=== PATIENT | female | born 1935 | race Caucasian/White ===

== ENCOUNTER → 2017-06-29 08:29 | Outpatient (CLI) | payer MEDICARE, OTHER, SELFPAY ==
[2017-06-29 09:19] LABS: AST(SGOT) 20 U/L (15-37); Alanine Aminotransfer ALT/SGPT 19 U/L (13-56); Albumin, Serum 3.6 g/dL (3.2-5.0); Alkaline Phosphatase 62 U/L (45-117); Bilirubin, Direct 0.18 mg/dL (0.00-0.30); Cholesterol 193 mg/dL (200); Globulin 3.9 g/dL (2.2-4.2); High Density Lipoprotein 62 mg/dL; Protein, Total 7.5 g/dL (6.4-8.2); Triglycerides 119 mg/dL; Very Low Density Lipoprotein 24 mg/dL (5-40)
== END ==
PROVIDERS: Family Provider Internal Medicine; PCP Internal Medicine; Visit Provider Internal Medicine Cardiovascular Disease
DX: E78.5 Hyperlipidemia, unspecified (principal); Z79.899 Other long term (current) drug therapy
CPT/HCPCS: 36415; 80061; 80076

== ENCOUNTER → 2017-10-13 12:23 | Outpatient (CLI) | payer MEDICARE, OTHER, SELFPAY | PROVIDERS: Family Provider Internal Medicine; PCP Internal Medicine; Visit Provider Internal Medicine | DX: Z12.31 Encounter for screening mammogram for malignant neoplasm of breast (principal) | CPT/HCPCS: 77063; 77067 ==

== ENCOUNTER 2017-12-27 09:23 | Emergency (ER) | payer MEDICARE, OTHER, SELFPAY ==
[2017-12-27 09:25] VITALS: BP 148/89; PULSE 85; RESP 16; TEMP 36.3; O2SAT 97; BMI 23.6
--- NOTE | 2017-12-27 10:09 | RAD_ITS ---
STUDY: X-RAY CHEST REASON FOR EXAM: Female, 82 years old. Cough TECHNIQUE: PA and lateral views of the chest. COMPARISON: None. FINDINGS: There is hyperinflation of the lungs consistent with chronic obstructive lung disease (COPD). Lungs are clear. There is no demonstrated pleural abnormality. Sternal cerclage wires are present from a prior sternotomy. Heart size is within normal limits. Calcified right hilar granulomas. Normal visualized pulmonary arteries. There is atherosclerotic calcification of the aortic arch with tortuosity. There are diffuse degenerative changes of the visualized thoracic spine. Normal visualized ribs, clavicles, and shoulders. There is no demonstrated abnormality of the visualized soft tissue structures of the upper abdomen. RAD/Chest PA and Lateral IMPRESSION: COPD without acute findings Electronically Signed: Jered Wilson DO at 10:42 EST Tel , Service support ,
--- NOTE | 2017-12-27 10:13 | ED.DCSUM_ITS ---
- ER Visit Summary Date of Service: 12/27/17 Chief Complaint: Cough History of Present Illness: The patient is a [address] Edge. She reports he has a nonproductive cough began approximately 2 weeks ago. She reports that she is having severe coughing spells 3-4 times per day. She denies any fever or chills. No chest pain or shortness of breath. She reports that she does have congestion and mild sinus drainage. Physical Examination: Vitals: Stable. Afebrile. General: Well-nourished and well-developed. Head: Normocephalic atraumatic. Neck: Supple, no lymphadenopathy. No JVD. Nontender. Cardiovascular: Regular rate and rhythm. No murmurs. Respiratory: No respiratory distress. Clear to auscultation bilaterally. Abdominal: Soft, nontender, nondistended, normal bowel sounds. No guarding, rebound, or peritoneal signs. Back: Nontender. Extremities: Nontender, no edema. Skin: Normal color, no rash. Neurologic: Alert and oriented ?3. Cranial nerves II through XII are intact. Normal strength and sensation. Psych: Normal affect. Test Results: Chest x-ray shows no acute disease. She does have chronic changes and calcified right hilar nodes that were present on a CT in 2016. Emergency Department Course and Treatment: Patient is resting comfortably. She reports she had a similar episode last year that resolved after Zithromax. I did discuss the possibility that this is viral in origin. Treatment Plan: Patient will be discharged with Zithromax. Instructed to follow-up with Dr. Edge in 5-7 days if not improving. Return to the emergency department for any worsening symptoms. Disposition: To home in improved and stable condition. Impression: 1. URI. This note was generated with Explorer.io dictation software. It may contain incorrect words, spelling, and punctuation that were not noted in review of the chart prior to signing ED Disposition - Plan for ED Patient: Chief Complaint: Cough Instructions: ED Upper Resp Infec Abx Tx Prescriptions: Azithromycin [Zithromax] 250 mg PO DAILY #4 tablet Referrals: Meera Edge DO [Primary Care Provider] - 5-7 Days
[2017-12-27] MEDS: Azithromycin 250 MG Tablet 500 MG PO (10:23)
== END 2017-12-27 10:45 | disposition home or self-care (01) ==
LOC: ED 10:02
PROVIDERS: Emergency Provider Emergency Medicine; Family Provider Internal Medicine; PCP Internal Medicine
DX: J06.9 Acute upper respiratory infection, unspecified (principal); J98.4 Other disorders of lung; I25.10 Atherosclerotic heart disease of native coronary artery without angina pectoris; I10 Essential (primary) hypertension; Z79.82 Long term (current) use of aspirin; Z79.899 Other long term (current) drug therapy; Z95.1 Presence of aortocoronary bypass graft
CPT/HCPCS: 71046; 99281

== ENCOUNTER → 2018-07-12 09:15 | Outpatient (CLI) | payer MEDICARE, OTHER, SELFPAY ==
[2018-07-12 10:48] LABS: AST(SGOT) 21 U/L (15-37); Alanine Aminotransfer ALT/SGPT 23 U/L (13-56); Albumin, Serum 3.4 g/dL (3.2-5.0); Alkaline Phosphatase 67 U/L (45-117); Bilirubin, Direct 0.14 mg/dL (0.00-0.30); Cholesterol 179 mg/dL (200); Globulin 3.8 g/dL (2.2-4.2); High Density Lipoprotein 65 mg/dL; Protein, Total 7.2 g/dL (6.4-8.2); Triglycerides 99 mg/dL; Very Low Density Lipoprotein 20 mg/dL (5-40)
== END ==
PROVIDERS: Family Provider Internal Medicine; PCP Internal Medicine; Referring Provider Internal Medicine Cardiovascular Disease; Visit Provider Internal Medicine Cardiovascular Disease
DX: E78.5 Hyperlipidemia, unspecified (principal)
CPT/HCPCS: 36415; 80061; 80076

== ENCOUNTER → 2018-07-23 06:33 | Outpatient (CLI) | payer MEDICARE, OTHER, SELFPAY ==
[2018-07-12 13:06] VITALS: BMI 24.9
--- NOTE | 2018-07-23 17:19 | STRESSREP ---
Stress Test Report Date: 07-23-18 Procedure: Exercise tolerance test/imaging study Indications: CAD; CABG Consent: Per the patient Procedure: The patient exercised on a Yoni protocol for 6 minutes and 10 seconds completing Stage II and 10 seconds of Stage III achieving a peak heart rate of 136 bpm (99 % predicted maximal heart rate) with a peak blood pressure 172/84 mmHg and a peak MET capacity of 7 METs. The baseline ECG demonstrated normal sinus rhythm; nonspecific ST/T wave abnormality. The peak exercise ECG demonstrated no obvious ECG changes and the peak recovery ECG demonstrated approximately [address] segment depression in leads II, III, and aVF with subsequent resolution towards baseline in recovery. There were no cardiac dysrhythmias pretest, during exercise, or recovery. The functional capacity was considered good. There was no complaint of chest discomfort during exercise or recovery. The examination was discontinued secondary to hip pain. Impression: 1. Technically adequate (percent predicted maximal heart rate greater than 85%) exercise tolerance test 2. Peak exercise ECG with no obvious ECG changes and the peak recovery ECG demonstrated approximately [address] segment depression in leads II, III, and aVF with subsequent resolution towards baseline in recovery 3. There were no cardiac dysrhythmias pretest, during exercise, or recovery 4. Nuclear images pending Myocardial perfusion imaging study: Technique: The patient was injected with 10.9 mCi of technetium 99m Cardiolite and subsequently rest SPECT Cardiolite nuclear imaging was obtained in the horizontal long, vertical long, and short axis views. The patient exercised on a Yoni protocol for 6 minutes and 10 seconds completing Stage II and 10 seconds of Stage III achieving a peak heart rate of 136 bpm (99 % predicted maximal heart rate) with a peak blood pressure 172/84 mmHg and a peak MET capacity of 7 METs. The patient was injected with 32.1 mCi of technetium 99m Cardiolite and subsequently stress SPECT Cardiolite nuclear imaging was obtained in the horizontal long, vertical long, and short axis views. A gated Cardiolite study at peak stress was obtained. Interpretation: Rest and stress SPECT Cardiolite nuclear imaging status post realignment, normalization, and attenuation correction, demonstrates relative uniform tracer uptake and myocardial perfusion appearing within normal limits. There is end systolic thickening and brightening. The gated Cardiolite study demonstrates myocardial thickening and inward wall motion. The reported LVEF is 80 %. Impression: 1. Rest and stress SPECT Cardiolite nuclear imaging demonstrate relative uniform tracer uptake and myocardial perfusion appearing within normal limits. 2. The gated Cardiolite study reports an LVEF of 80 %. This note was generated with Maraquiaation software. It may contain incorrect words, spelling, and punctuation that were not noted in checking the note before signing.
== END ==
PROVIDERS: Family Provider Internal Medicine; PCP Internal Medicine; Referring Provider Internal Medicine Cardiovascular Disease; Visit Provider Internal Medicine Cardiovascular Disease
DX: I25.10 Atherosclerotic heart disease of native coronary artery without angina pectoris (principal); Z95.1 Presence of aortocoronary bypass graft
CPT/HCPCS: 78452; 93017; A9500; A4216

== ENCOUNTER → 2018-10-20 13:35 | Outpatient (CLI) | payer MEDICARE, OTHER, SELFPAY ==
[2018-07-12 13:06] VITALS: BMI 24.9
--- NOTE | 2018-10-20 13:37 | BI_ITS ---
MAMMOGRAPHY - BILATERAL SCREENING REASON FOR EXAM: Female, 83 years old. Routine annual screening examination. PERTINENT HISTORY: Non-contributory. TECHNIQUE: Digital bilateral breast wagner (3D mammographic acquisition) in the CC and MLO projections. 2-D mediolateral oblique (MLO) and craniocaudad (CC) views of both breasts were obtained. CAD: Full Field Digital Mammography with Computer Added Detection was performed. COMPARISON: Comparison is made with prior study October 13, 2017 and October 08, 2016. FINDINGS: Breast Composition: The breasts are heterogeneously dense, which may obscure small masses. There are no dominant masses or suspicious calcifications. Stable calcified nodule in the deep upper medial aspect of the left breast. This is suggestive of a calcified fibroadenoma. No other significant abnormalities are identified. There has been no significant change since the prior study. BI/SCREEN MAMM (CAD) W/WAGNER BILAT IMPRESSION: Stable bilateral screening mammogram. Yearly follow-up mammogram recommended. (A) ASSESSMENT CATEGORY: BIRADS Category 2: Benign. A letter regarding these results will be sent to the patient by the facility within 30 days. Approximately 10% of breast cancers are not detected by mammography. A normal mammogram should not delay biopsy of a clinically suspicious abnormality. [id number] Electronically Signed: Brian Villarreal, at 14:56 EDT , Service support ,
== END ==
PROVIDERS: Family Provider Internal Medicine; PCP Internal Medicine; Referring Provider Internal Medicine; Visit Provider Internal Medicine
DX: Z12.31 Encounter for screening mammogram for malignant neoplasm of breast (principal)
CPT/HCPCS: 77063; 77067

== ENCOUNTER → 2019-01-11 08:48 | Outpatient (CLI) | payer MEDICARE, OTHER, SELFPAY ==
[2018-07-12 13:06] VITALS: BMI 24.9
[2019-01-11 09:54] LABS: AST(SGOT) 23 U/L (15-37); Alanine Aminotransfer ALT/SGPT 22 U/L (13-56); Albumin, Serum 3.5 g/dL (3.2-5.0); Alkaline Phosphatase 65 U/L (45-117); Bilirubin, Direct 0.18 mg/dL (0.00-0.30); Cholesterol 197 mg/dL (200); Globulin 3.6 g/dL (2.2-4.2); High Density Lipoprotein 58 mg/dL; Protein, Total 7.1 g/dL (6.4-8.2); Triglycerides 130 mg/dL; Very Low Density Lipoprotein 26 mg/dL (5-40)
== END ==
PROVIDERS: Family Provider Internal Medicine; PCP Internal Medicine; Referring Provider Internal Medicine Cardiovascular Disease; Visit Provider Internal Medicine Cardiovascular Disease
DX: E78.00 Pure hypercholesterolemia, unspecified (principal)
CPT/HCPCS: 36415; 80061; 80076

== ENCOUNTER → 2019-04-11 09:30 | Outpatient (CLI) | payer MEDICARE, OTHER, SELFPAY ==
[2019-01-12 13:08] VITALS: BMI 25.0
[2019-04-11 10:47] LABS: AST(SGOT) 29 U/L (15-37); Alanine Aminotransfer ALT/SGPT 32 U/L (13-56); Albumin, Serum 3.7 g/dL (3.2-5.0); Alkaline Phosphatase 67 U/L (45-117); Bilirubin, Direct 0.21 mg/dL (0.00-0.30); Cholesterol 197 mg/dL (200); High Density Lipoprotein 68 mg/dL; Protein, Total 7.7 g/dL (6.4-8.2); Triglycerides 117 mg/dL; Very Low Density Lipoprotein 23 mg/dL (5-40)
== END ==
PROVIDERS: PCP Internal Medicine; Referring Provider Internal Medicine Cardiovascular Disease; Visit Provider Internal Medicine Cardiovascular Disease
DX: E78.00 Pure hypercholesterolemia, unspecified (principal)
CPT/HCPCS: 36415; 80061; 80076

== ENCOUNTER → 2019-04-20 13:01 | Outpatient (CLI) | payer MEDICARE, OTHER, SELFPAY ==
[2019-04-12 13:01] VITALS: BMI 25.2
--- NOTE | 2019-04-20 13:02 | CDU_ITS ---
Reason For Study: Bruit Rt. Velocities/BP Lt. Velocities/BP Prox CCA 63/13.4 cm/sec. Prox CCA 71.1/14.5 cm/sec. Mid CCA 60.4/17.3 cm/sec. Mid CCA 44.7/14.5 cm/sec. Dist CCA 48.6/14.7 cm/sec. Dist CCA 46.6/16.3 cm/sec. Prox ICA 41.9/13.5 cm/sec. Prox ICA 69.2/22 cm/sec. Mid ICA 65.5/23 cm/sec. Mid ICA 86.3/29.6 cm/sec. Dist ICA 82.5/29.6 cm/sec. Dist ICA 76.8/27.7 cm/sec. Rt. ICA/CCA = 1.4. Lt. ICA/CCA = 1.9. Prox ECA 64.3/9.5 cm/sec. Prox ECA 56/6 cm/sec. Rt. Vert. 31.7/9 cm/sec. Lt. Vert. 57.9/18.2 cm/sec. Right Extracranial There is heterogeneous, irregular atherosclerotic plaque noted in the right common carotid artery. There is heterogeneous, smooth atherosclerotic plaque noted in the right internal carotid artery. There is heterogeneous, irregular atherosclerotic plaque noted in the right external carotid artery. Antegrade flow is noted in the right vertebral artery. Left Extracranial There is homogeneous, smooth atherosclerotic plaque noted in the left common carotid artery. There is heterogeneous, irregular atherosclerotic plaque noted in the left internal carotid artery. The atherosclerotic plaque causes acoustic shadowing. There is heterogeneous, smooth atherosclerotic plaque noted in the left external carotid artery. Antegrade flow is noted in the left vertebral artery. Procedure Carotid Duplex [id number]. Exam performed in department. Interpretation Summary Irregular calcific plaque right mid common carotid artery Irregular plaque at the proximal right external carotid artery with a more minimal amount at the proximal right internal carotid artery <50% stenosis right internal carotid <50% stenosis right external carotid Calcific plaque with shadowing distal left common carotid and proximal left internal and external carotid arteries <50% stenosis left internal carotid <50% stenosis left external carotid Patent, antegrade bilateral vertebrals Ordering Physician: Jaleesa Meng Referring Physician: Meera Edge M.D. Performed By: Talia Hong RVT
== END ==
PROVIDERS: PCP Internal Medicine; Referring Provider Physician Assistant Medical; Visit Provider Physician Assistant Medical
DX: R09.89 Other specified symptoms and signs involving the circulatory and respiratory systems (principal); I25.10 Atherosclerotic heart disease of native coronary artery without angina pectoris; I77.9 Disorder of arteries and arterioles, unspecified; I10 Essential (primary) hypertension; E78.00 Pure hypercholesterolemia, unspecified
CPT/HCPCS: 93880

== ENCOUNTER → 2020-07-11 12:49 | Outpatient (CLI) | payer MEDICARE, OTHER, SELFPAY ==
[2020-01-11 15:42] VITALS: BMI 25.4
--- NOTE | 2020-07-11 12:56 | ECHOD_ITS ---
Reason For Study: RBBB Procedure This was a 2D Doppler, Color Flow transthoracic echocardiogram. The exam was of adequate technical quality. Exam performed in department. Left Ventricle Normal LV size. Left ventricular systolic function is normal. The estimated ejection fraction is 65 %. Diastolic function is indeterminate. No regional wall motion abnormalities noted. Right Ventricle Normal RV size. Normal systolic function. Atria Normal left atrium. Normal right atrium. No doppler evidence for ASD. Mitral Valve There is mild mitral annular calcification. Normal mitral valve. Mild (1+) mitral valve insufficiency. Tricuspid Valve Normal tricuspid valve. Moderate (2+) tricuspid valve insufficiency. Right ventricular systolic pressure estimated to be 26 mmHg. Aortic Valve Trisinus/trileaflet aortic valve. Mild diffuse aortic valve thickening. Moderate focal aortic valve calcification. Mild aortic stenosis. Pulmonic Valve The pulmonic valve is not well visualized. Trivial pulmonic valve insufficiency. Great Vessels Mildly dilated aortic root. Pericardium/Pleural No pericardial effusion. MMode/2D Measurements & Calculations LVIDd: 4.4 cm IVSd: 0.70 cm LVOT diam: 1.9 cm LVIDs: 2.9 cm LVPWd: 0.77 cm LVOT area: 2.8 cm2 RVDd: 3.0 cm FS: 34.6 % Ao root diam: 4.1 cm LAV(MOD-bp): 26.4 ml LVAd ap4: 20.0 cm2 LAV(MOD-bp) Indexed: 15.6 ml/m2 LVLd ap4: 6.6 cm LAV(MOD-sp2): 27.3 ml EDV(MOD-sp4): 49.6 ml LAV(MOD-sp4): 25.8 ml EDV(sp4-el): 51.6 ml LVAs ap4: 10.6 cm2 LVLs ap4: 5.3 cm ESV(MOD-sp4): 18.1 ml ESV(sp4-el): 17.9 ml EF(MOD-sp4): 63.4 % EF(sp4-el): 65.2 % LVAd ap2: 14.1 cm2 SV(MOD-sp4): 31.5 ml SV(MOD-sp2): 18.3 ml LVLd ap2: 5.9 cm EDV(MOD-sp2): 27.8 ml EDV(sp2-el): 28.6 ml LVAs ap2: 7.2 cm2 LVLs ap2: 5.1 cm ESV(MOD-sp2): 9.4 ml ESV(sp2-el): 8.7 ml EF(MOD-sp2): 66.0 % SV(sp4-el): 33.6 ml LA dimension(2D): 3.2 cm LA A4 area: 11.4 cm2 RA A4 area: 8.0 cm2 Time Measurements MV dec time: 0.28 sec Doppler Measurements & Calculations MV E max eddie: 67.7 cm/sec Lat Peak E' Eddie: 12.8 cm/sec Med Peak E' Eddie: 3.9 cm/sec MV A max eddie: 88.4 cm/sec E/E' lat: 5.3 E/E' med: 17.2 MV E/A: 0.77 Ao V2 max: 146.0 cm/sec LV V1 max: 87.6 cm/sec PA V2 max: 78.8 cm/sec Ao max P.5 mmHg LV V1 max P.1 mmHg CRISTOBAL(V,D): 1.7 cm2 PI end-d eddie: 95.5 cm/sec TR max eddie: 236.5 cm/sec TR max P.5 mmHg ECHO/Echo Complete Interpretation Summary Left ventricular systolic function is normal. The estimated ejection fraction is 65 %. There is mild mitral annular calcification. Mild (1+) mitral valve insufficiency. Moderate (2+) tricuspid valve insufficiency. Mild aortic stenosis. Trivial pulmonic valve insufficiency. Mildly dilated aortic root. Right ventricular systolic pressure estimated to be 26 mmHg. Diastolic function is indeterminate. Ordering Physician: Meera Edge Referring Physician: Meera Edge Performed By: Shaunajeri TOWNSEND RVT, Carrie and Student
== END ==
PROVIDERS: PCP Internal Medicine; Referring Provider Internal Medicine; Visit Provider Internal Medicine
DX: I45.10 Unspecified right bundle-branch block (principal); R94.31 Abnormal electrocardiogram [ECG] [EKG]
CPT/HCPCS: 93306

== ENCOUNTER 2020-12-24 15:09 | Outpatient (CLI) | payer MEDICARE, OTHER, SELFPAY ==
[2020-12-24 15:35] VITALS: BP 142/75; PULSE 81; RESP 16; TEMP 36.8; O2SAT 99; BMI 24.5
[2020-12-24 16:12] VITALS: BP 138/72; PULSE 70; RESP 16; TEMP 36.7; O2SAT 99
[2020-12-24 16:59] VITALS: BP 131/79; PULSE 81; RESP 16; TEMP 36.8; O2SAT 99
== END 2020-12-24 17:22 | disposition home or self-care (01) ==
LOC: MS3OUT 15:09 → MS3 15:09
PROVIDERS: PCP Internal Medicine; Referring Provider Nurse Practitioner Adult Health; Visit Provider Nurse Practitioner Adult Health
DX: U07.1 COVID-19 (principal)
CPT/HCPCS: J7050; M0245; Q0245

== ENCOUNTER 2021-01-17 17:07 | Emergency (ER) | payer MEDICARE, OTHER, SELFPAY ==
[2021-01-17 17:08] VITALS: BP 204/183; PULSE 94; RESP 16; TEMP 36.6; O2SAT 99; BMI 23.9
--- NOTE | 2021-01-17 17:28 | EKG12_ITS ---
Test Reason : HYPERTENSION Blood Pressure : / mmHG Vent. Rate : 086 BPM Atrial Rate : 086 BPM P-R Int : 172 ms QRS Dur : 094 ms QT Int : 356 ms P-R-T Axes : 081 -29 051 degrees QTc Int : 426 ms Sinus rhythm with Premature atrial complexes Otherwise normal ECG Confirmed by DEO GARCIA, ADA ([id number]), news video editor YASSINE CHIU ([id number]) on 01/18/2021 11:48:22 AM Referred By: MADISYN Confirmed By:ADA DESOUZA MD
--- NOTE | 2021-01-17 17:28 | RAD_ITS ---
STUDY: X-RAY - ACUTE ABDOMINAL SERIES REASON FOR EXAM: Female, 85 years old. abd pain TECHNIQUE: Single view of the chest. Supine, and erect view(s) of the abdomen were obtained. COMPARISON: None. FINDINGS: Chronic fibrotic changes of the lung bases. Granuloma in the right lower lobe. Normal size heart. Sternal wires and mediastinal surgical clips compatible with prior CABG. There are calcified right hilar lymph nodes. Normal visualized pulmonary arteries. There is aneurysmal dilatation of the ascending aorta. There is a non-specific bowel gas pattern. The soft tissue structures of the abdomen and pelvis are unremarkable. There are diffuse degenerative changes of the visualized lumbar spine. Vascular phleboliths of the lower pelvis. Surgical hernia coils project over the right iliac crest. RAD/Acute Abdomen Inc Chest IMPRESSION: 1. Nonobstructive bowel gas pattern. Nonacute Chest xray. Electronically Signed: Pablo Funes MD ([place]) at 18:21 EST , Service support ,
[2021-01-17 17:38] VITALS: BP 148/83; PULSE 84; RESP 18; O2SAT 97
[2021-01-17 17:42] LABS: Absolute Lymphocyte Count 2.84 X10^3/uL (0.83-4.51); Absolute Neutrophil Count 4.1 X10^3/uL (2.0-7.7); Basophil# 0.04 X10^3/uL; Basophil% 0.5 % (0-1); Eosinophil# 0.24 X10^3/uL; Hemoglobin 13.2 g/dL (12.0-15.0); Lymphocyte # 2.84 X10^3/ul (0.83-4.51); Mean Corp Hgb Conc 33.8 g/dL (32-36); Mean Corpuscular Hgb 30.7 pg (27.0-32.0); Mean Corpuscular Volume 90.7 fL (81-99); Mean Platelet Vol. 9.3 fl (6.2-12.0); Monocyte# 0.84 X10^3/uL; Monocyte% 10.3 % (0-10); NRBC Flagged by Analyzer 0 % (0-5); Neutrophil # 4.13 X10^3/uL (2.7-7.7); Neutrophil % 50.8 % (47-70); Platelet Count 320 K/mm3 (150-450); RBC Distribution Width SD 46.2 fl (35.1-43.9); White Blood Count 8.1 K/mm3 (4.4-11.0)
[2021-01-17 18:07] LABS: AST(SGOT) 26 U/L (15-37); Alanine Aminotransfer ALT/SGPT 24 U/L (13-56); Albumin, Serum 3.4 g/dL (3.2-5.0); Alkaline Phosphatase 72 U/L (45-117); Anion Gap 8 (5-15); BUN 26 mg/dL (7-18); BUN/Creat Ratio 26.6 RATIO (10-20); Bilirubin, Direct 0.17 mg/dL (0.00-0.30); Calcium,Total 9.8 mg/dL (8.5-10.1); Chloride 105 mmol/L (98-107); Creatinine, Serum 0.98 mg/dL (0.55-1.02); EST Glomerular Filtration Rate 57 mL/min (>60); Est Glom Filt Rate - Afr Amer 69 mL/min (>60); Estimated Creatinine Clearance 34.09 ml/min; Globulin 4.2 g/dL (2.2-4.2); Glucose 112 mg/dL (74-106); Lipase 399 U/L (73-393); Potassium 3.6 mmol/L (3.5-5.1); Protein, Total 7.6 g/dL (6.4-8.2); Sodium Level 140 mmol/L (136-145); Troponin-I HS 11 pg/mL (3.0-54.0)
--- NOTE | 2021-01-17 19:31 | EX.ED.DYSGE1 ---
HPI History of Present Illness Chief Complaint: General Illness Narrative Narrative: Patient is an 85-year-old female who states that she has been having intermittent bouts of spasm and irritation to her upper abdomen that she feels radiates into her chest. She states the symptoms can come on after eating and will last anywhere from a few minutes to a few hours and then resolve. She states she does have a remote history of heart disease and is concerned this could be cardiac in nature and therefore comes in for evaluation. 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 Bilateral carotid artery disease CAD (coronary artery disease) Carotid artery disease Dyspnea on exertion Essential hypertension GERD (gastroesophageal reflux disease) HTN (hypertension) Hyperlipidemia Other intermodal truck driver (current) drug therapy Palpitations Pericardial effusion Peripheral vascular disease Pure hypercholesterolemia Tachycardia Thoracic aortic aneurysm Home Medications aspirin 325 mg PO DAILY@0800 06/27/13 [History Last Taken 06/28/13] atorvastatin 40 mg PO QHS 06/27/13 [History Last Taken 06/27/13] bumetanide 0.5 mg PO DAILY 06/27/13 [History Last Taken 06/27/13] glucosamine sulf-chondroitinSA 1 ea PO DAILY 06/27/13 [History Last Taken 06/27/13] metoprolol succinate 50 mg PO DAILY 06/27/13 [History Last Taken 06/27/13] multivitamin with folic acid 1 tab PO DAILY 06/27/13 [History Last Taken 06/27/13] cholecalciferol (vitamin D3) 50 mcg (2,000 unit) tablet 2,000 unit PO QDAY 06/23/17 [History Last Taken Unknown] amlodipine 5 mg tablet 5 mg PO DAILY #90 tab 04/27/19 [Rx Last Taken Unknown] ascorbic acid (vitamin C) 500 mg tablet 500 mg PO DAILY@0800 tab 01/11/20 [History Last Taken Unknown] calcium carbonate 600 mg (1,500 mg)-vitamin D3 500 unit capsule 1 cap PO DAILY cap 01/11/20 [History Last Taken Unknown] levothyroxine 25 mcg capsule 50 mcg PO .every other day cap 11/09/20 [History Last Taken Unknown] Allergy/AdvReac Type Severity Reaction Status Date / Time codeine Allergy Unknown Verified 01/17/21 17:23 Family History Father CAD (coronary artery disease) Myocardial infarction Mother CVA (cerebral vascular accident) CHF (congestive heart failure) Brother CAD (coronary artery disease) Hx of CABG Sister No problems noted. Sister Hypertension CAD (coronary artery disease) Surgical History History of hernia repair History of hysterectomy History of repair of rotator cuff Hx of CABG (~11/01/10) Social History (Updated 01/11/20 @ 16:[address] Cheng Sinha MD) Smoking Status: Never smoker alcohol intake: never substance use type: does not use caffeine: Yes Type: tea Number of servings: 1 what type of physical activity do you participate in: none seatbelt use: always do you feel safe at home: Yes ROS ROS ED Constitutional Constitutional ED: Denies chills or fever(s) Eyes Eyes: Denies change in vision ENT ENT ED: Denies sore throat Cardiovascular Cardiovascular: Reports chest pain Respiratory/Chest Respiratory/Chest: Denies cough or dyspnea Gastrointestinal Gastrointestinal: Reports abdominal pain; Denies diarrhea, nausea or vomiting Genitourinary Genitourinary ED: Denies dysuria Musculoskeletal Musculoskeletal: Denies myalgias Integumentary Denies rash Neurologic Neurologic: Denies headache(s) EXAM Physical Exam Const Vital Signs: 01/17/21 17:08 01/17/21 17:22 01/17/21 17:38 Temperature 97.8 F Temperature Source Temporal Pulse Rate 94 84 Respiratory Rate 16 18 Respiratory Effort Normal Respiratory Pattern Normal Blood Pressure 204/183 H 148/83 H Blood Pressure Mean 190 104 Pulse Ox 99 97 Oxygen Delivery Method Room Air Room Air 01/17/21 19:52 Temperature Temperature Source Pulse Rate 70 Respiratory Rate 14 Respiratory Effort Respiratory Pattern Blood Pressure 137/79 H Blood Pressure Mean Pulse Ox 97 Oxygen Delivery Method Positive well nourished and well developed General Appearance ED: well developed HEENT Reports moist mucous membranes Eyes PERRL and EOMs intact bilaterally Neck supple Chest Wall palpation of chest normal Resp normal respiratory effort and clear to auscultation bilaterally Cardio regular rate and regular rhythm Rate: other Other Details: Radial pulses are +2-4 bilaterally they're equal and symmetric GI normal to inspection, nondistended, normoactive bowel sounds, non-tender, non-distended and no masses GI Narrative: No voluntary guarding or rigidity no pulsatile mass Auscultation: normoactive bowel sounds Palpation: soft Extremity normal to inspection Extremity Narrative: No asymmetric edema no pitting edema negative Homans' sign bilaterally Neuro oriented x3 and CN's II-XII intact bilaterally Sensorium / Orientation: alert Motor Exam: strength 5/5 throughout Psych Mood & Affect: anxious Skin no rashes or lesions noted MDM MDM MDM Narrative Medical decision making narrative: Patient presented to the ER hypertensive but otherwise with stable vitals. Her history and physical exam is consistent with a gastritis and esophageal spasm and I feel this is leading to increased anxiety which is then causing her blood pressure to spike. However as she does have a remote history of cardiac disease a basic work-up was obtained. Patient's x-rays revealed no acute findings. EKG is sinus rhythm. Troponin is normal. Her lipase was elevated by only six points which is not clinically significant and she has no derangement to her liver enzymes. Patient was not given any medication and her blood pressure improved and her symptoms resolved. Therefore at this time I do not feel there is need for further work-up and patient can be safely discharged home Lab Data Attestation: I reviewed the patient's lab results. Labs: Laboratory Results - last 24 hr 01/17/21 01/17/21 17:33 17:33 WBC 8.1 RBC 4.30 Hgb 13.2 Hct 39.0 MCV 90.7 MCH 30.7 MCHC 33.8 RDW Std Deviation 46.2 H RDW Coeff of Windy 14.0 Plt Count 320 MPV 9.3 Immature Gran % (Auto) 0.400 Neut % (Auto) 50.8 Lymph % (Auto) 35.0 [place] % (Auto) 10.3 H Eos % (Auto) 3.0 Baso % (Auto) 0.5 Absolute Neuts (auto) 4.1 Absolute Lymphs (auto) 2.84 Nucleated RBC % 0 Sodium 140 Potassium 3.6 Chloride 105 Carbon Dioxide 27.0 Anion Gap 8 BUN 26 H Creatinine 0.98 Estim Creat Clear Calc 34.09 Est GFR (MDRD) Af Amer 69 Est GFR (MDRD) Non-Af 57 L BUN/Creatinine Ratio 26.6 H Glucose 112 H Calcium 9.8 Total Bilirubin 0.60 Direct Bilirubin 0.17 AST 26 ALT 24 Alkaline Phosphatase 72 Troponin I High Sens 11 Total Protein 7.6 Albumin 3.4 Globulin 4.2 Lipase 399 H Radiography Diagnostic Testing: Clinical Impression(s) from Imaging Studies Acute Abdomen Series 01/17/21 17:28 IMPRESSION: 1. Nonobstructive bowel gas pattern. Nonacute Chest xray. Electronically Signed: Pablo Funes MD ([place]) at 18:21 EST , Service support , Discharge Plan Triage Chief Complaint: General Illness ED Provider: Alen Hernandez Dx/Rx/DC Orders Clinical Impression: Gastritis, Esophageal spasm Instructions: ED Esophageal Spasm, ED Gastritis (Adult) Prescriptions: No Action cholecalciferol (vitamin D3) 2,000 unit tablet 2,000 unit tablet 2,000 unit PO QDAY RF: 0 levothyroxine 25 mcg capsule 25 mcg capsule 50 mcg PO .every other day RF: 0 calcium carbonate-vitamin D3 [Calcium 600 with Vitamin D3] 600 mg(1,500mg) -500 unit capsule 1 cap PO DAILY RF: 0 atorvastatin 40 MG tablet 40 mg PO QHS RF: 0 aspirin 325 MG tablet 325 mg PO DAILY@0800 RF: 0 metoprolol succinate 50 MG tablet 50 mg PO DAILY RF: 0 bumetanide 0.5 MG tablet 0.5 mg PO DAILY RF: 0 glucosamine sulf-chondroitinSA 1 EACH capsule 1 ea PO DAILY RF: 0 multivitamin with folic acid 1 TABLET tablet 1 tab PO DAILY RF: 0 ascorbic acid (vitamin C) 500 mg tablet 500 mg PO DAILY@0800 RF: 0 amlodipine 5 mg tablet 5 mg PO DAILY Qty: 90 RF: 3 Primary Care Provider: Meera Edge Referrals: Meera Edge DO [Primary Care Provider] - Activity Restrictions/Additional Instructions: Please also begin taking omeprazole once a day to help with any stomach acid issues as a cause of your symptoms Disposition Disposition: Home, Self Care Discharge Date/Time: 01/17/21 19:52
[2021-01-17 19:52] VITALS: BP 137/79; PULSE 70; RESP 14; O2SAT 97
== END 2021-01-17 19:52 | disposition home or self-care (01) ==
PROVIDERS: Emergency Provider Emergency Medicine; PCP Internal Medicine
DX: K29.70 Gastritis, unspecified, without bleeding (principal); K22.4 Dyskinesia of esophagus; I25.10 Atherosclerotic heart disease of native coronary artery without angina pectoris; I10 Essential (primary) hypertension; K21.9 Gastro-esophageal reflux disease without esophagitis; E78.00 Pure hypercholesterolemia, unspecified; Z95.1 Presence of aortocoronary bypass graft; Z79.82 Long term (current) use of aspirin; Z79.899 Other long term (current) drug therapy
CPT/HCPCS: 74022; 80048; 80076; 83690; 84484; 85025; 93005; 99283; A4216

== ENCOUNTER 2021-07-15 16:20 | Emergency (ER) | payer MEDICARE, OTHER, SELFPAY ==
[2021-07-15 16:21] VITALS: BP 143/102; PULSE 72; RESP 16; TEMP 36.9; O2SAT 100; BMI 23.6
--- NOTE | 2021-07-15 16:38 | EX.ED.UPPERE ---
HPI History of Present Illness Chief Complaint: Upper Extremity Injury Informant: patient Narrative Narrative: Patient presents with left wrist pain after a fall on Thursday. She had been trimming bushes. When she stood up and stepped back she accidentally stepped on part of a tree stump. This caused her to lose her balance fall and catch her self on her left wrist. There is no other pain or injury anywhere besides her left nondominant hand wrist. No deformity. She already has a splint on it that she has been using that does help. There is no numbness tingling or weakness. 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 Bilateral carotid artery disease CAD (coronary artery disease) Carotid artery disease Dyspnea on exertion Essential hypertension GERD (gastroesophageal reflux disease) HTN (hypertension) Hyperlipidemia Other intermediate card tender (current) drug therapy Palpitations Pericardial effusion Peripheral vascular disease Pure hypercholesterolemia Tachycardia Thoracic aortic aneurysm without rupture Home Medications aspirin 325 mg PO DAILY@0800 06/27/13 [History Last Taken 06/28/13] atorvastatin 40 mg PO QHS 06/27/13 [History Last Taken 06/27/13] bumetanide 0.5 mg PO DAILY 06/27/13 [History Last Taken 06/27/13] glucosamine sulf-chondroitinSA 1 ea PO DAILY 06/27/13 [History Last Taken 06/27/13] metoprolol succinate 50 mg PO DAILY 06/27/13 [History Last Taken 06/27/13] multivitamin with folic acid 1 tab PO DAILY 06/27/13 [History Last Taken 06/27/13] cholecalciferol (vitamin D3) 50 mcg (2,000 unit) tablet 2,000 unit PO QDAY 06/23/17 [History Last Taken Unknown] amlodipine 5 mg tablet 5 mg PO DAILY #90 tab 04/27/19 [Rx Last Taken Unknown] ascorbic acid (vitamin C) 500 mg tablet 500 mg PO DAILY@0800 tab 01/11/20 [History Last Taken Unknown] levothyroxine 25 mcg capsule 50 mcg PO .every other day cap 11/09/20 [History Last Taken Unknown] Allergy/AdvReac Type Severity Reaction Status Date / Time codeine Allergy Unknown Verified 07/15/21 16:23 Family History Father CAD (coronary artery disease) Myocardial infarction Mother CVA (cerebral vascular accident) CHF (congestive heart failure) Brother CAD (coronary artery disease) Hx of CABG Sister No problems noted. Sister Hypertension CAD (coronary artery disease) Surgical History History of hernia repair History of hysterectomy History of repair of rotator cuff Hx of CABG (~11/01/10) Social History Smoking Status: Never smoker alcohol intake: never substance use type: does not use caffeine: Yes Type: tea Number of servings: 1 what type of physical activity do you participate in: none seatbelt use: always do you feel safe at home: Yes ROS ROS ED Constitutional Constitutional ED: Denies chills or fever(s) Eyes Eyes: Denies blurry vision Cardiovascular Cardiovascular: Denies chest pain Respiratory/Chest Respiratory/Chest: Denies dyspnea Gastrointestinal Gastrointestinal: Denies nausea or vomiting Musculoskeletal Musculoskeletal: Reports other Details: See history of present illness ; Denies back pain or neck pain Integumentary Denies Abrasions or rash Neurologic Neurologic: Denies paresthesias Hematologic/Lymphatic Hematologic/Lymphatic: Denies easy bleeding or easy bruising EXAM Physical Exam Const Vital Signs: 07/15/21 16:21 Temperature 98.5 F Temperature Source Temporal Pulse Rate 72 Respiratory Rate 16 Blood Pressure 143/102 H Blood Pressure Mean 115 Pulse Ox 100 Oxygen Delivery Method Room Air Positive well nourished and well developed General Appearance ED: well developed and NAD HEENT normocephalic and atraumatic Neck full ROM Resp normal respiratory effort Cardio regular rate GI non-tender Palpation: soft Back/Spine no CVA tenderness Cervical Spine: Negative for cervical spine tenderness Thoracic Spine / Upper Back: Negative for thoracic spinal tenderness Lumbar Spine / Lower Back: Negative for lumbar spinal tenderness Extremity Extremity Narrative: Patient does have some slight swelling diffusely over the distal radius area on the left. No visible deformity. There is a little bit of linear bruising but it seems to be mostly in a skin fold where her wrist splint was. No break in the skin. No distal or proximal swelling. No tenderness in the hand fingers or elbow area. Neuro Sensorium / Orientation: alert Psych mental status grossly normal Skin Skin Narrative: Mild bruising as above. MDM MDM MDM Narrative Medical decision making narrative: X-rays looked at by me and read by radiology shows a small nondisplaced distal radius fracture. Patient already has a good Velcro splint that controls bones on either side of this fracture. I think this should be appropriate. She will be encouraged to follow-up. She will have repeat imaging. She may end up needing casting after a few days as swelling goes down. Discharge Plan Triage Chief Complaint: Upper Extremity Injury ED Provider: Sarmad Espinal Dx/Rx/DC Orders Clinical Impression: Fall from slip, trip, or stumble, Closed fracture of distal end of left radius Instructions: Wrist Fracture Prescriptions: No Action cholecalciferol (vitamin D3) 2,000 unit tablet 2,000 unit tablet 2,000 unit PO QDAY RF: 0 levothyroxine 25 mcg capsule 25 mcg capsule 50 mcg PO .every other day RF: 0 atorvastatin 40 MG tablet 40 mg PO QHS RF: 0 aspirin 325 MG tablet 325 mg PO DAILY@0800 RF: 0 metoprolol succinate 50 MG tablet 50 mg PO DAILY RF: 0 bumetanide 0.5 MG tablet 0.5 mg PO DAILY RF: 0 glucosamine sulf-chondroitinSA 1 EACH capsule 1 ea PO DAILY RF: 0 multivitamin with folic acid 1 TABLET tablet 1 tab PO DAILY RF: 0 ascorbic acid (vitamin C) 500 mg tablet 500 mg PO DAILY@0800 RF: 0 amlodipine 5 mg tablet 5 mg PO DAILY Qty: 90 RF: 3 Primary Care Provider: Meera Edge Referrals: Meera Edge DO [Primary Care Provider] - Arley Dobson MD [STAFF PHYSICIAN] - 3-5 Days Disposition Disposition: Home, Self Care
--- NOTE | 2021-07-15 16:45 | RAD_ITS ---
STUDY: X-RAY - LEFT WRIST REASON FOR EXAM: Female, 85 years old. trauma TECHNIQUE: 3 view(s) of the wrist were obtained. COMPARISON: None. FINDINGS: Acute subtle nondisplaced transverse fracture of the distal metaphysis of the radius without involvement of the radiocarpal joint. Normal radiocarpal articulation. Normal distal radioulnar articulation. Normal carpal bones. There is degenerative arthrosis of the carpal articulations. Normal carpometacarpal articulation of the thumb. Normal second through fifth carpometacarpal articulations. Normal visualized metacarpal bones. The soft tissue structures are unremarkable. RAD/Wrist min 3 Views IMPRESSION: Subtle nondisplaced nondilated transverse fracture of the distal metaphysis of the radius. Electronically Signed: Camacho Bella MD at 17:25 EDT ,
== END 2021-07-15 18:02 | disposition home or self-care (01) ==
PROVIDERS: Emergency Provider Emergency Medicine; PCP Internal Medicine; Visit Provider Emergency Medicine
DX: S52.592A Other fractures of lower end of left radius, initial encounter for closed fracture (principal); W01.0XXA Fall on same level from slipping, tripping and stumbling without subsequent striking against object, initial encounter; Y93.H2 Activity, gardening and landscaping; I25.10 Atherosclerotic heart disease of native coronary artery without angina pectoris; I10 Essential (primary) hypertension; E78.00 Pure hypercholesterolemia, unspecified; Z79.82 Long term (current) use of aspirin; Z79.899 Other long term (current) drug therapy
CPT/HCPCS: 73110; 99282

== ENCOUNTER → 2021-12-26 | Outpatient (CLI) | payer MEDICARE, OTHER, SELFPAY ==
--- NOTE | 2021-12-26 13:49 | ECHOD_ITS ---
Reason For Study: TRICUSPID INSUFFICIENCY Procedure This was a 2D Doppler, Color Flow transthoracic echocardiogram. The exam was of adequate technical quality. Exam performed in department. Left Ventricle Normal LV size. Left ventricular systolic function is normal. The estimated ejection fraction is 65 %. No evidence for diastolic dysfunction. No regional wall motion abnormalities noted. Right Ventricle Normal RV size. Normal systolic function. Atria Normal left atrium. Normal right atrium. No doppler evidence for ASD. Mitral Valve There is mild mitral annular calcification. Extension of the mitral annular calcification onto the base of the posterior mitral valve leaflet. Mild (1+) mitral valve insufficiency. Tricuspid Valve Normal tricuspid valve. Moderate (2+) tricuspid valve insufficiency. Right ventricular systolic pressure estimated to be 32 mmHg. Aortic Valve Trisinus/trileaflet aortic valve. Mild focal aortic valve calcification. Mild aortic stenosis. Pulmonic Valve The pulmonic valve is not well visualized. Great Vessels Mild to moderately dilated aortic root. Pericardium/Pleural 2D echocardiographic images compatible with a small echolucency compatible with a small loculated appearing pericardial effusion with no obvious evidence of cardiac tamponade physiology. MMode/2D Measurements & Calculations LVIDd: 4.5 cm IVSd: 0.83 cm LVOT diam: 2.0 cm LVIDs: 3.2 cm LVPWd: 0.96 cm LVOT area: 3.1 cm2 RVDd: 3.4 cm FS: 28.4 % Ao root diam: 4.4 cm LAV(MOD-bp): 48.2 ml LA A4 area: 14.3 cm2 LAV(MOD-bp) Indexed: 29.1 ml/m2 LAV(MOD-sp2): 46.8 ml LAV(MOD-sp4): 38.4 ml LA dimension(2D): 3.6 cm RA A4 area: 12.7 cm2 Time Measurements MV dec time: 0.22 sec Doppler Measurements & Calculations MV E max eddie: 58.4 cm/sec Lat Peak E' Eddie: 9.4 cm/sec Med Peak E' Eddie: 5.7 cm/sec MV A max eddie: 83.6 cm/sec E/E' lat: 6.2 E/E' med: 10.3 MV E/A: 0.70 MV dec slope: 269.3 cm/sec2 Ao V2 max: 149.2 cm/sec LV V1 max: 87.3 cm/sec Ao max P.9 mmHg LV V1 max P.0 mmHg Ao V2 mean: 100.5 cm/sec LV V1 mean P.6 mmHg Ao mean P.6 mmHg LV V1 mean: 58.7 cm/sec Ao V2 VTI: 31.7 cm LV V1 VTI: 21.0 cm CRISTOBAL(I,D): 2.1 cm2 CRISTOBAL(V,D): 1.8 cm2 SV(LVOT): 65.2 ml PA V2 max: 73.3 cm/sec TR max eddie: 268.4 cm/sec TR max P.8 mmHg ECHO/Echo Complete Interpretation Summary Left ventricular systolic function is normal. The estimated ejection fraction is 65 %. There is mild mitral annular calcification. Extension of the mitral annular calcification onto the base of the posterior mi tral valve leaflet. Mild (1+) mitral valve insufficiency. Moderate (2+) tricuspid valve insufficiency. Mild focal aortic valve calcification. Mild aortic stenosis. Mild to moderately dilated aortic root. 2D echocardiographic images compatible with a small echolucency compatible with a small loculated appearing pericardial effusion with no obvious evidence of cardiac tamponade ph ysiology. Right ventricular systolic pressure estimated to be 32 mmHg. No evidence for diastolic dysfunction. Ordering Physician: Meera Edge Referring Physician: Meera Edge Performed By: Keesha Morgan, RDCS, RVT
== END | disposition home or self-care (01) ==
LOC: CVS 13:48
PROVIDERS: PCP Internal Medicine; Referring Provider Internal Medicine; Visit Provider Internal Medicine
DX: I07.1 Rheumatic tricuspid insufficiency (principal)
CPT/HCPCS: 93306

== ENCOUNTER 2022-02-08 20:56 | Emergency (ER) | payer MEDICARE, OTHER, SELFPAY ==
[2022-02-08 20:58] VITALS: BP 155/95; PULSE 98; RESP 16; TEMP 36.5; O2SAT 98; BMI 23.1
[2022-02-08 21:01] VITALS: BP 155/95; PULSE 98; RESP 16; TEMP 36.5; O2SAT 98
[2022-02-08 22:00] VITALS: BP 138/84; PULSE 73; RESP 17; O2SAT 96
--- NOTE | 2022-02-08 22:20 | EKG12_ITS ---
Test Reason : DYSRHYTHMIA Blood Pressure : / mmHG Vent. Rate : 084 BPM Atrial Rate : 084 BPM P-R Int : 180 ms QRS Dur : 100 ms QT Int : 352 ms P-R-T Axes : 047 -15 047 degrees QTc Int : 415 ms Normal sinus rhythm Normal ECG Confirmed by DEO GARCIA, ADA ([id number]), order editor YASSINE CHIU ([id number]) on 02/10/2022 12:50:36 PM Referred By: MAXIMILIANO Confirmed By:ADA DESOUZA MD
--- NOTE | 2022-02-08 22:30 | RAD_ITS ---
STUDY: X-RAY CHEST REASON FOR EXAM: Female, 86 years old. palpitations TECHNIQUE: Single AP portable view of the chest. COMPARISON: 01/17/2021 FINDINGS: Status post median sternotomy. The lungs are clear and expanded. There is no demonstrated pleural abnormality. Normal size heart. Normal mediastinum and chioma. Normal visualized pulmonary arteries. There is atherosclerotic tortuosity of the aortic arch and descending thoracic aorta. Normal visualized thoracic spine. Normal visualized ribs, clavicles, and shoulders. There is no demonstrated abnormality of the visualized soft tissue structures of the upper abdomen. RAD/Chest 1 View (Portable) IMPRESSION: No active disease. Electronically Signed: Camacho Bella MD at 22:47 EST ,
[2022-02-08 22:41] LABS: Absolute Lymphocyte Count 3.37 X10^3/uL (0.83-4.51); Absolute Neutrophil Count 4.6 X10^3/uL (2.0-7.7); Basophil# 0.05 X10^3/uL; Basophil% 0.5 % (0-1); Eosinophil# 0.25 X10^3/uL; Eosinophils% 2.7 % (0-5); Hematocrit 39.4 % (37-47); Hemoglobin 13.3 g/dL (12.0-15.0); Lymphocyte # 3.37 X10^3/ul (0.83-4.51); Lymphocyte % 36.7 % (19-41); Mean Corp Hgb Conc 33.8 g/dL (32-36); Mean Corpuscular Hgb 30.5 pg (27.0-32.0); Mean Corpuscular Volume 90.4 fL (81-99); Mean Platelet Vol. 9.3 fl (6.2-12.0); Monocyte# 0.94 X10^3/uL; Monocyte% 10.2 % (0-10); NRBC Flagged by Analyzer 0 % (0-5); Neutrophil # 4.55 X10^3/uL (2.7-7.7); Neutrophil % 49.6 % (47-70); Platelet Count 296 K/mm3 (150-450); RBC Distribution Width CV 13.6 % (11.6-14.6); RBC Distribution Width SD 45.4 fl (35.1-43.9); Red Blood Count 4.36 M/mm3 (4.2-5.4); White Blood Count 9.2 K/mm3 (4.4-11.0)
[2022-02-08 23:09] LABS: Anion Gap 8 (5-15); BUN 25 mg/dL (7-18); BUN/Creat Ratio 27.9 RATIO (10-20); Calcium,Total 9.7 mg/dL (8.5-10.1); Chloride 104 mmol/L (98-107); EST Glomerular Filtration Rate 63 mL/min (>60); Est Glom Filt Rate - Afr Amer 76 mL/min (>60); Estimated Creatinine Clearance 38.03 ml/min; Glucose 101 mg/dL (74-106); Magnesium 2.2 mg/dL (1.6-2.6); Potassium 3.3 mmol/L (3.5-5.1); Sodium Level 139 mmol/L (136-145); Thyroid Stim Hormone (TSH) 3.57 uIU/mL (0.358-3.74); Troponin-I HS 8 pg/mL (3.0-54.0)
--- NOTE | 2022-02-08 23:25 | EX.ED.DYSGE1 ---
HPI History of Present Illness Chief Complaint: Palpitations Informant: patient Onset/Context/Timing Onset: Today Timing: Intermittent Current Severity: Gone Maximum Severity: Moderate Narrative Narrative: Patient presents with intermittent episodes of palpitations all day today. She states she first noted around 7 AM. Her heart was fast running in the 140s for about 3 hours. Since then she has had some other shorter intermittent episodes. Daughter came over to check on her and noted that she did not have her metoprolol in her daily medication dispenser. She apparently had emptied 1 bottle and had not opened the new bottle to fill her medication dispenser. Patient is unsure whether she missed any doses of her metoprolol. Patient states she did have A. fib for a brief period after she had heart surgery. 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 Bilateral carotid artery disease CAD (coronary artery disease) Carotid artery disease Closed left arm fracture Dyspnea on exertion Essential hypertension GERD (gastroesophageal reflux disease) HTN (hypertension) Hyperlipidemia Other petroleum terminal plant operator (current) drug therapy Palpitations Pericardial effusion Peripheral vascular disease Pure hypercholesterolemia Tachycardia Thoracic aortic aneurysm without rupture Home Medications aspirin 325 mg tablet 325 mg PO DAILY@0800 06/27/13 [History Last Taken 06/28/13] atorvastatin 40 mg tablet 40 mg PO QHS 06/27/13 [History Last Taken 06/27/13] metoprolol succinate 50 mg tablet,extended release 24 hr 50 mg PO DAILY 06/27/13 [History Last Taken 06/27/13] multivitamin with folic acid 400 mcg tablet 1 tab PO DAILY 06/27/13 [History Last Taken 06/27/13] cholecalciferol (vitamin D3) 50 mcg (2,000 unit) tablet 2,000 unit PO QDAY 06/23/17 [History Last Taken Unknown] amlodipine 5 mg tablet 5 mg PO DAILY #90 tabs 04/27/19 [Rx Last Taken Unknown] ascorbic acid (vitamin C) 500 mg tablet 500 mg PO DAILY@0800 01/11/20 [History Last Taken Unknown] bumetanide 0.5 mg tablet 0.75 mg PO DAILY 12/19/21 [History Last Taken Unknown] lactobacillus combination no.9 4 billion cell capsule (Adult 50 Plus Probiotic) 4,000 mmu cells PO DAILY 12/19/21 [History Last Taken Unknown] levothyroxine 25 mcg capsule 50 mcg PO .COMPLEX 12/19/21 [History Last Taken Unknown] potassium chloride 20 mEq tablet,extended release 20 meq PO BID #6 tabs 02/08/22 [Rx Last Taken Unknown] Allergy/AdvReac Type Severity Reaction Status Date / Time codeine Allergy Unknown Verified 12/19/21 13:25 Family History Father CAD (coronary artery disease) Myocardial infarction Mother CVA (cerebral vascular accident) CHF (congestive heart failure) Brother CAD (coronary artery disease) Hx of CABG Sister No problems noted. Sister Hypertension CAD (coronary artery disease) Surgical History History of hernia repair History of hysterectomy History of repair of rotator cuff Hx of CABG (~11/01/10) Social History Smoking Status: Never smoker alcohol intake: never substance use type: does not use caffeine: Yes Type: tea Number of servings: 1 what type of physical activity do you participate in: none seatbelt use: always do you feel safe at home: Yes ROS ROS ED Constitutional Constitutional ED: Denies chills or fever(s) Eyes Eyes: Denies change in vision or discharge from eye(s) ENT ENT ED: Denies discharge from eye(s), rhinorrhea or sore throat Cardiovascular Cardiovascular: Reports palpitations; Denies chest pain Respiratory/Chest Respiratory/Chest: Denies cough or dyspnea Gastrointestinal Gastrointestinal: Denies abdominal pain, nausea or vomiting Genitourinary Genitourinary ED: Denies dysuria Musculoskeletal Musculoskeletal: Denies back pain or extremity pain Integumentary Denies Abrasions or rash Neurologic Neurologic: Denies headache(s) or weakness Psychiatric Psychiatric: Denies anxiety or depression Allergic/Immunologic Allergic/Immunologic ED: Denies lip swelling or urticaria EXAM Physical Exam Const Vital Signs: 02/08/22 20:58 02/08/22 21:01 02/08/22 21:16 Temperature 97.7 F L 97.7 F L Temperature Source Temporal Temporal Pulse Rate 98 98 Respiratory Rate 16 16 Respiratory Effort Normal Blood Pressure 155/95 H 155/95 H Blood Pressure Mean 115 115 Pulse Ox 98 98 Oxygen Delivery Method Room Air Room Air 02/08/22 22:00 02/08/22 23:27 Temperature Temperature Source Pulse Rate 73 Respiratory Rate 17 Respiratory Effort Blood Pressure 138/84 H 135/87 H Blood Pressure Mean 102 Pulse Ox 96 Oxygen Delivery Method Room Air Positive well nourished and well developed General Appearance ED: well developed HEENT Reports normocephalic and head/scalp atraumatic Eyes PERRL and EOMs intact bilaterally Neck supple Chest Wall inspection of chest normal and palpation of chest normal Resp normal respiratory effort and clear to auscultation bilaterally Cardio regular rate and regular rhythm GI normal to inspection, nondistended, normoactive bowel sounds Palpation: soft Extremity normal to inspection Neuro oriented x3 and no sensory deficits noted Sensorium / Orientation: alert Motor Exam: strength 5/5 throughout Psych mental status grossly normal Skin no rashes or lesions noted MDM MDM MDM Narrative Medical decision making narrative: Patient is placed on corrugated box machine operator. Lab work obtained along with EKG and chest x-ray. Lab Data Attestation: I reviewed the patient's lab results. Labs: Laboratory Results - last 24 hr 02/08/22 02/08/22 21:33 21:33 WBC 9.2 RBC 4.36 Hgb 13.3 Hct 39.4 MCV 90.4 MCH 30.5 MCHC 33.8 RDW Std Deviation 45.4 H RDW Coeff of [place]y 13.6 Plt Count 296 MPV 9.3 Immature Gran % (Auto) 0.300 Neut % (Auto) 49.6 Lymph % (Auto) 36.7 [place] % (Auto) 10.2 H Eos % (Auto) 2.7 Baso % (Auto) 0.5 Absolute Neuts (auto) 4.6 Absolute Lymphs (auto) 3.37 Nucleated RBC % 0 Sodium 139 Potassium 3.3 L Chloride 104 Carbon Dioxide 27.0 Anion Gap 8 BUN 25 H Creatinine 0.90 Estim Creat Clear Calc 38.03 Est GFR (MDRD) Af Amer 76 Est GFR (MDRD) Non-Af 63 BUN/Creatinine Ratio 27.9 H Glucose 101 Calcium 9.7 Magnesium 2.2 Troponin I High Sens 8 TSH 3.57 Radiography Chest X-Ray - ED: 1 View, Read by ED Physician and Chronic Changes Diagnostic Testing: Clinical Impression(s) from Imaging Studies Chest X-Ray 02/08/22 22:30 IMPRESSION: No active disease. Electronically Signed: Camacho Bella MD at 22:47 EST , EKG Initial EKG: Attestation: I personally reviewed and interpreted this EKG as follows: Interpretation: Sinus Rhythm (Sinus at 84 with no acute ischemia.) Treatment and Re-Evaluation Narrative: During patient's observation on corrugated box machine operator, no arrhythmias are appreciated. She is remained in sinus rhythm. CBC and chemistry studies significant for slightly low potassium at 3.3. Magnesium is normal at 2.2. TSH is normal and troponin is normal. Patient is given p.o. potassium replacement here and written for 3 additional days at home. She was advised that if she continues to have episodes of palpitations she would need to see either her primary care physician or her water use inspector about getting a Holter monitor placed. Patient denies having any lightheadedness, dizziness, near syncope with these episodes. Return instructions are given and questions were answered. Discharge Plan Triage Chief Complaint: Palpitations ED Provider: Karley Reyna Dx/Rx/DC Orders Clinical Impression: Palpitations, Hypokalemia Instructions: ED Hypokalemia, ED Palpitations Prescriptions: New potassium chloride 20 mEq tablet extended release 20 meq PO BID Qty: 6 0RF No Action cholecalciferol (vitamin D3) 2,000 unit tablet 2,000 unit tablet 2,000 unit PO QDAY levothyroxine 25 mcg capsule 25 mcg capsule 50 mcg PO .COMPLEX Rx Instructions: 50 mcg orally alternates 25mcg and 50mcg every other day; Adult 50 Plus Probiotic 4 billion cell capsule 4,000 mmu cells PO DAILY Rx Instructions: administer with a meal atorvastatin 40 MG tablet 40 mg PO QHS aspirin 325 MG tablet 325 mg PO DAILY@0800 metoprolol succinate 50 MG tablet 50 mg PO DAILY multivitamin with folic acid 1 TABLET tablet 1 tab PO DAILY ascorbic acid (vitamin C) 500 mg tablet 500 mg PO DAILY@0800 bumetanide 0.5 mg tablet 0.75 mg PO DAILY amlodipine 5 mg tablet 5 mg PO DAILY Qty: 90 3RF Primary Care Provider: Meera Edge Referrals: Meera Edge DO [Primary Care Provider] - Cheng Sinha MD [Med Staff - Active Staff] - 10-14 Days if not better Disposition Disposition: Home, Self Care Discharge Date/Time: 02/08/22 23:41
[2022-02-08 23:27] VITALS: BP 135/87
[2022-02-08] MEDS: Potassium Chloride Oral Tablet 20 MEQ 40 MEQ PO (23:34)
== END 2022-02-08 23:41 | disposition home or self-care (01) ==
PROVIDERS: Emergency Provider Emergency Medicine; PCP Internal Medicine; Visit Provider Emergency Medicine
DX: E87.6 Hypokalemia (principal); R00.2 Palpitations; E78.5 Hyperlipidemia, unspecified; I25.10 Atherosclerotic heart disease of native coronary artery without angina pectoris; I10 Essential (primary) hypertension
CPT/HCPCS: 71045; 80048; 83735; 84443; 84484; 85025; 93005; 99284; A4216

== ENCOUNTER 2022-04-28 21:28 | Emergency (ER) | payer MEDICARE, OTHER, SELFPAY ==
[2022-04-28 21:30] VITALS: BP 153/90; PULSE 103; RESP 18; TEMP 35.9; O2SAT 98; BMI 24.3
--- NOTE | 2022-04-28 22:01 | EKG12_ITS ---
Test Reason : CP Blood Pressure : / mmHG Vent. Rate : 092 BPM Atrial Rate : 092 BPM P-R Int : 176 ms QRS Dur : 096 ms QT Int : 392 ms P-R-T Axes : 075 -26 062 degrees QTc Int : 484 ms Normal sinus rhythm Septal infarct , age undetermined Abnormal ECG Confirmed by TONNY GARCIA, MADINA ([id number]), editor news YASSINE CHIU ([id number]) on 04/30/2022 10:12:06 AM Referred By: MANOJ Confirmed By:MADINA LANCASTER MD
--- NOTE | 2022-04-28 22:03 | ED.VIS.CHEST ---
HPI History of Present Illness Chief Complaint: Chest Pain Detail of Chief Complaint: Tachycardia Informant: patient Onset/Context/Timing Onset: Today Narrative Narrative: Patient presents secondary to tachycardia and chest pressure all day today. She states her heart rate has been running in the 90s all day and she usually runs in the 60s. She has a heavy sensation in her chest. She does not feel short of breath. She does note that she is been under increased stress recently as her has been in the hospital. She has been taking all of her medications on a regular schedule. 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 Bilateral carotid artery disease CAD (coronary artery disease) Carotid artery disease Closed left arm fracture Dyspnea on exertion Essential hypertension GERD (gastroesophageal reflux disease) HTN (hypertension) Hyperlipidemia Other terminal gauger (current) drug therapy Palpitations Pericardial effusion Peripheral vascular disease Pure hypercholesterolemia Tachycardia Thoracic aortic aneurysm without rupture Home Medications aspirin 325 mg tablet 325 mg PO DAILY@0800 06/27/13 [History Last Taken 06/28/13] atorvastatin 40 mg tablet 40 mg PO QHS 06/27/13 [History Last Taken 06/27/13] metoprolol succinate 50 mg tablet,extended release 24 hr 50 mg PO DAILY 06/27/13 [History Last Taken 06/27/13] multivitamin with folic acid 400 mcg tablet 1 tab PO DAILY 06/27/13 [History Last Taken 06/27/13] cholecalciferol (vitamin D3) 50 mcg (2,000 unit) tablet 2,000 unit PO QDAY 06/23/17 [History Last Taken Unknown] amlodipine 5 mg tablet 5 mg PO DAILY #90 tabs 04/27/19 [Rx Last Taken Unknown] ascorbic acid (vitamin C) 500 mg tablet 500 mg PO DAILY@0800 01/11/20 [History Last Taken Unknown] bumetanide 0.5 mg tablet 0.75 mg PO DAILY 12/19/21 [History Last Taken Unknown] lactobacillus combination no.9 4 billion cell capsule (Adult 50 Plus Probiotic) 4,000 mmu cells PO DAILY 12/19/21 [History Last Taken Unknown] levothyroxine 25 mcg capsule 50 mcg PO .COMPLEX 12/19/21 [History Last Taken Unknown] magnesium 1 tab PO DAILY 04/28/22 [History Last Taken Unknown] potassium chloride 20 mEq tablet,extended release 20 meq PO DAILY 04/28/22 [History Last Taken Unknown] zinc 1 tab PO DAILY 04/28/22 [History Last Taken Unknown] Allergy/AdvReac Type Severity Reaction Status Date / Time codeine Allergy Unknown Verified 12/19/21 13:25 Family History Father CAD (coronary artery disease) Myocardial infarction Mother CVA (cerebral vascular accident) CHF (congestive heart failure) Brother CAD (coronary artery disease) Hx of CABG Sister No problems noted. Sister Hypertension CAD (coronary artery disease) Surgical History History of hernia repair History of hysterectomy History of repair of rotator cuff Hx of CABG (~11/01/10) Social History Smoking Status: Never smoker alcohol intake: never substance use type: does not use caffeine: Yes Type: tea Number of servings: 1 what type of physical activity do you participate in: none seatbelt use: always do you feel safe at home: Yes ROS ROS ED Constitutional Constitutional ED: Denies chills or fever(s) Eyes Eyes: Denies change in vision or discharge from eye(s) ENT ENT ED: Denies discharge from eye(s), rhinorrhea or sore throat Cardiovascular Cardiovascular: Reports chest pain and racing heartbeat; Denies palpitations Respiratory/Chest Respiratory/Chest: Denies cough or dyspnea Gastrointestinal Gastrointestinal: Denies abdominal pain, diarrhea, nausea or vomiting Genitourinary Genitourinary ED: Denies dysuria Musculoskeletal Musculoskeletal: Denies back pain or extremity pain Integumentary Denies Abrasions or rash Neurologic Neurologic: Denies headache(s) or weakness Psychiatric Psychiatric: Denies anxiety or depression Allergic/Immunologic Allergic/Immunologic ED: Denies lip swelling or urticaria EXAM Physical Exam Const Vital Signs: 04/28/22 21:30 04/28/22 22:05 04/28/22 23:14 Temperature 96.7 F L Temperature Source Temporal Pulse Rate 103 H 74 Respiratory Rate 18 18 Respiratory Effort Normal Non-Labored Blood Pressure 153/90 H 106/93 H Blood Pressure Mean 111 97 Pulse Ox 98 96 Oxygen Delivery Method Room Air Room Air Positive well nourished and well developed General Appearance ED: well developed HEENT Reports normocephalic and head/scalp atraumatic Eyes PERRL and EOMs intact bilaterally Neck supple Chest Wall inspection of chest normal and palpation of chest normal Resp normal respiratory effort and clear to auscultation bilaterally Cardio regular rate and regular rhythm GI non-tender Palpation: soft Extremity normal to inspection Neuro oriented x3 and no sensory deficits noted Sensorium / Orientation: alert Motor Exam: strength 5/5 throughout Psych mental status grossly normal Skin no rashes or lesions noted Heart Score History: Slightly/Non-Suspicious ECG: Normal Age: >/= 65 years Risk Factors: >/= 3 Risk Factors or History of CAD Troponin: </= Normal Limit Score: 4 MDM MDM MDM Narrative Medical decision making narrative: Patient placed on laboratory monitor. Aspirin provided. EKG obtained to evaluate for cardiac arrhythmia/ischemia. Chest x-ray obtained to evaluate cardiac silhouette and any lung pathology. Laboratory evaluation undertaken to evaluate for leukocytosis, anemia, electrolyte derangement. Troponin obtained to evaluate for cardiac ischemia. TSH obtained given the patient's fast with a normal heart rate and history of hypothyroidism. Lab Data Attestation: I reviewed the patient's lab results. Labs: Laboratory Results - last 24 hr 04/28/22 04/28/22 22:10 22:10 WBC 8.3 RBC 4.18 L Hgb 12.7 Hct 38.8 MCV 92.8 MCH 30.4 MCHC 32.7 RDW Std Deviation 48.2 H RDW Coeff of Windy 14.2 Plt Count 269 MPV 9.1 Immature Gran % (Auto) 0.200 Neut % (Auto) 47.1 Lymph % (Auto) 37.1 [place] % (Auto) 12.0 H Eos % (Auto) 3.0 Baso % (Auto) 0.6 Absolute Neuts (auto) 3.9 Absolute Lymphs (auto) 3.08 Nucleated RBC % 0 Sodium 140 Potassium 3.4 L Chloride 105 Carbon Dioxide 28.0 Anion Gap 7 BUN 30 H Creatinine 1.00 Estim Creat Clear Calc 34.23 Est GFR (MDRD) Af Amer 67 Est GFR (MDRD) Non-Af 56 L BUN/Creatinine Ratio 30.0 H Glucose 112 H Calcium 9.6 Troponin I High Sens 12 TSH 3.60 Radiography Chest X-Ray - ED: 1 View, Read by ED Physician, Normal, Heart, Lungs and Mediastinum Diagnostic Testing: Clinical Impression(s) from Imaging Studies Chest X-Ray 04/28/22 22:20 IMPRESSION: No acute radiographic abnormalities. 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 Heart rate is in the low 70s. Reveals normal white count and hemoglobin. Chemistry studies significant only for slightly low potassium at 3.4. BUN is 30 with a creatinine of 1.0. Troponin is normal at 12. TSH is 3.6. Patient was given oral potassium replacement here. She is reassured with a negative work-up at this time and will follow with her primary care physician. Return instructions also provided. Patient and granddaughter at bedside are comfortable with the plan. Discharge Plan Triage Chief Complaint: Chest Pain ED Provider: Karley Reyna Dx/Rx/DC Orders Clinical Impression: Chest pain Instructions: ED Chest Pain, Noncardiac Prescriptions: No Action cholecalciferol (vitamin D3) 2,000 unit tablet 2,000 unit tablet 2,000 unit PO QDAY levothyroxine 25 mcg capsule 25 mcg capsule 50 mcg PO .COMPLEX Rx Instructions: 50 mcg orally alternates 25mcg and 50mcg every other day; Adult 50 Plus Probiotic 4 billion cell capsule 4,000 mmu cells PO DAILY Rx Instructions: administer with a meal atorvastatin 40 MG tablet 40 mg PO QHS aspirin 325 MG tablet 325 mg PO DAILY@0800 metoprolol succinate 50 MG tablet 50 mg PO DAILY multivitamin with folic acid 1 TABLET tablet 1 tab PO DAILY ascorbic acid (vitamin C) 500 mg tablet 500 mg PO DAILY@0800 bumetanide 0.5 mg tablet 0.75 mg PO DAILY potassium chloride 20 mEq tablet extended release 20 meq PO DAILY zinc Tablet,Chewable 1 tab PO DAILY magnesium Tablet 1 tab PO DAILY amlodipine 5 mg tablet 5 mg PO DAILY Qty: 90 3RF Primary Care Provider: Meera Edge Referrals: Meera Edge DO [Primary Care Provider] - 3-5 Days if not improving Disposition Disposition: Home, Self Care
[2022-04-28] MEDS: Aspirin 81 MG TAB.CHEW 324 MG PO (22:13)
[2022-04-28 22:17] LABS: Absolute Lymphocyte Count 3.08 X10^3/uL (0.83-4.51); Absolute Neutrophil Count 3.9 X10^3/uL (2.0-7.7); Basophil# 0.05 X10^3/uL; Basophil% 0.6 % (0-1); Eosinophil# 0.25 X10^3/uL; Hematocrit 38.8 % (37-47); Hemoglobin 12.7 g/dL (12.0-15.0); Lymphocyte # 3.08 X10^3/ul (0.83-4.51); Lymphocyte % 37.1 % (19-41); Mean Corp Hgb Conc 32.7 g/dL (32-36); Mean Corpuscular Hgb 30.4 pg (27.0-32.0); Mean Corpuscular Volume 92.8 fL (81-99); Mean Platelet Vol. 9.1 fl (6.2-12.0); NRBC Flagged by Analyzer 0 % (0-5); Neutrophil % 47.1 % (47-70); Platelet Count 269 K/mm3 (150-450); RBC Distribution Width CV 14.2 % (11.6-14.6); RBC Distribution Width SD 48.2 fl (35.1-43.9); Red Blood Count 4.18 M/mm3 (4.2-5.4); White Blood Count 8.3 K/mm3 (4.4-11.0)
--- NOTE | 2022-04-28 22:20 | RAD_ITS ---
INDICATION: chest pain EXAMINATION/TECHNIQUE: X-RAY - XR Chest 1 View COMPARISON: 02/08/2022. FINDINGS: Scattered calcified granulomas. The lungs are otherwise clear. Sternal cerclage wires and vascular clips are present from a prior sternotomy and coronary artery bypass graft procedure (CABG). The heart is not enlarged. Tortuous and calcified thoracic aorta. No pleural effusion or pneumothorax. Degenerative changes of the thoracic spine. RAD/Chest 1 View (Portable) IMPRESSION: No acute radiographic abnormalities. Electronically Signed: Ron Castillo MD at 23:13 EST ,
[2022-04-28 22:41] LABS: Anion Gap 7 (5-15); BUN 30 mg/dL (7-18); Calcium,Total 9.6 mg/dL (8.5-10.1); Chloride 105 mmol/L (98-107); EST Glomerular Filtration Rate 56 mL/min (>60); Est Glom Filt Rate - Afr Amer 67 mL/min (>60); Estimated Creatinine Clearance 34.23 ml/min; Glucose 112 mg/dL (74-106); Potassium 3.4 mmol/L (3.5-5.1); Sodium Level 140 mmol/L (136-145); Troponin-I HS (w/2H Reflex) 12 pg/mL (3.0-54.0)
[2022-04-28 23:14] VITALS: BP 106/93; PULSE 74; RESP 18; O2SAT 96
[2022-04-28] MEDS: Potassium Chloride Oral Tablet 20 MEQ 40 MEQ PO (23:38)
--- NOTE | 2022-04-28 23:49 | ED.RN ---
pt and granddaughter very appreciative of care.
[2022-04-29 00:14] LABS: Reflex Troponin-HS? (from REC) Y
== END 2022-04-28 23:49 | disposition home or self-care (01) ==
PROVIDERS: Emergency Provider Emergency Medicine; PCP Internal Medicine; Visit Provider Emergency Medicine
DX: R07.9 Chest pain, unspecified (principal); E78.00 Pure hypercholesterolemia, unspecified; I25.10 Atherosclerotic heart disease of native coronary artery without angina pectoris; Z95.1 Presence of aortocoronary bypass graft; Z79.82 Long term (current) use of aspirin; Z79.899 Other long term (current) drug therapy
CPT/HCPCS: 71045; 80048; 84443; 84484; 85025; 93005; 99285; A4216

== ENCOUNTER → 2022-12-16 | Outpatient (CLI) | payer MEDICARE, OTHER, SELFPAY ==
--- NOTE | 2022-12-16 07:31 | ECHOD_ITS ---
Reason For Study: CHEST PRESSURE, CAD Procedure This was a 2D Doppler, Color Flow transthoracic echocardiogram. Exam performed in department. Left Ventricle Normal size and thickness. The left ventricular ejection fraction is 60 %. Normal diastology for age. Right Ventricle Normal right ventricle. Atria The left atrium is mildly enlarged. Normal right atrium. Mitral Valve Mild (1+) mitral valve insufficiency. Tricuspid Valve Moderately severe (3+) tricuspid valve insufficiency. Right ventricular systolic pressure estimated to be 41 mmHg. Aortic Valve Aortic sclerosis, no stenosis. Mild (1+) aortic valve insufficiency. Pulmonic Valve The pulmonic valve is not well visualized. Great Vessels Mildly dilated aortic root. Pericardium/Pleural Trivial pericardial effusion. MMode/2D Measurements & Calculations LVIDd: 3.9 cm IVSd: 0.82 cm LVOT diam: 2.0 cm LVIDs: 2.7 cm LVPWd: 0.76 cm LVOT area: 3.1 cm2 RVDd: 2.9 cm FS: 31.1 % Ao root diam: 4.2 cm LAV(MOD-bp): 35.3 ml LVAd ap4: 21.7 cm2 LAV(MOD-bp) Indexed: 21.1 ml/m2 LVLd ap4: 6.6 cm LAV(MOD-sp2): 34.9 ml EDV(MOD-sp4): 59.9 ml LAV(MOD-sp4): 30.4 ml EDV(sp4-el): 60.0 ml LVAs ap4: 11.5 cm2 LVLs ap4: 5.5 cm ESV(MOD-sp4): 21.4 ml ESV(sp4-el): 20.6 ml EF(MOD-sp4): 64.2 % EF(sp4-el): 65.7 % LVAd ap2: 18.7 cm2 SV(MOD-sp4): 38.5 ml SV(MOD-sp2): 30.6 ml LVLd ap2: 6.5 cm EDV(MOD-sp2): 46.0 ml EDV(sp2-el): 45.8 ml LVAs ap2: 9.7 cm2 LVLs ap2: 5.4 cm ESV(MOD-sp2): 15.4 ml ESV(sp2-el): 14.9 ml EF(MOD-sp2): 66.6 % SV(sp4-el): 39.4 ml LA dimension(2D): 3.0 cm LA A4 area: 11.7 cm2 RA A4 area: 5.5 cm2 TAPSE: 1.7 cm Time Measurements MV dec time: 0.21 sec Doppler Measurements & Calculations MV E max eddie: 84.9 cm/sec Lat Peak E' Eddie: 11.8 cm/sec Med Peak E' Eddie: 5.7 cm/sec MV A max eddie: 83.8 cm/sec E/E' lat: 7.2 E/E' med: 14.9 MV E/A: 1.0 Ao V2 max: 146.4 cm/sec AI max eddie: 356.9 cm/sec MV dec slope: 413.9 cm/sec2 Ao max P.6 mmHg AI max P.0 mmHg Ao V2 mean: 98.4 cm/sec Ao mean P.5 mmHg AI dec slope: 181.4 cm/sec2 Ao V2 VTI: 36.4 cm AI P1/2t: 576.4 msec AV (velocity ratio): 0.57 CRISTOBAL(I,D): 1.8 cm2 CRISTOBAL(V,D): 1.8 cm2 LV V1 max: 84.7 cm/sec MR max eddie: 436.7 cm/sec SV(LVOT): 64.6 ml LV V1 max P.9 mmHg MR max P.3 mmHg LV V1 mean P.4 mmHg LV V1 mean: 53.8 cm/sec LV V1 VTI: 20.6 cm PA V2 max: 71.6 cm/sec TR max eddie: 277.7 cm/sec PA V2 mean: 47.2 cm/sec TR max P.9 mmHg ECHO/Echo Complete Interpretation Summary The left ventricular ejection fraction is 60 %. The left atrium is mildly enlarged. Mild (1+) mitral valve insufficiency. Moderately severe (3+) tricuspid valve insufficiency. Right ventricular systolic pressure estimated to be 41 mmHg. Aortic sclerosis, no stenosis. Mild (1+) aortic valve insufficiency. Mildly dilated aortic root. Incidental finding of relatively coarse architecture of the liver with cysts no maria eugenia. Consider ultrasound of the liver for further evaluation. Ordering Physician: Meera Edge Referring Physician: Meera Edge Performed By: Keesha Morgan, RDROBERTO, RVT
--- NOTE | 2022-12-16 11:59 | STRESSREP ---
Stress Test Report Date: 12/16/2022 Procedure: Exercise tolerance test/imaging study Indications: Chest pain Consent: Per the patient Procedure: The patient exercised on a Yoni protocol for 4 minutes and 30 seconds achieving a peak heart rate of 121 bpm (91% predicted maximal heart rate) with a peak blood pressure 152/84 mmHg and a peak MET capacity of 7.0 METs. The baseline ECG demonstrated sinus rhythm with nonspecific ST changes. The peak exercise ECG demonstrated nondiagnostic ST changes secondary to baseline abnormality. There were no cardiac dysrhythmias pretest, during exercise, or recovery. The functional capacity was considered average for age. There was no complaint of chest discomfort during exercise or recovery. The examination was discontinued secondary to target heart rate being achieved. The patient was injected with 11.2 mCi of technetium 99m Cardiolite and subsequently rest SPECT Cardiolite nuclear imaging was obtained in the horizontal long, vertical long, and short axis views. Post-exercise, the patient was injected with 34.8 mCi of technetium 99m Cardiolite and subsequently stress SPECT Cardiolite nuclear imaging was obtained in the horizontal long, vertical long, and short axis views. A gated Cardiolite study at peak stress was obtained. Rest and stress SPECT Cardiolite nuclear imaging status post realignment, normalization, and attenuation correction, demonstrates the appearance of relative uniform tracer uptake and myocardial perfusion appearing within normal limits. There is end systolic thickening and brightening. The gated Cardiolite study demonstrates myocardial thickening and inward wall motion. The reported LVEF is 80%. Impression: 1. Technically adequate (percent predicted maximal heart rate greater than 85%) exercise tolerance test 2. Peak exercise ECG nondiagnostic secondary to baseline abnormality 3. There were no cardiac dysrhythmias pretest, during exercise, or recovery 4. Rest and stress SPECT Cardiolite nuclear imaging demonstrate relative uniform tracer uptake and myocardial perfusion appearing within normal limits. 5. The gated Cardiolite study reports an LVEF of 80%. This note was generated with [employer] software. It may contain incorrect words, spelling, and punctuation that were not noted in checking the note before signing.
== END | disposition home or self-care (01) ==
PROVIDERS: PCP Internal Medicine; Referring Provider Internal Medicine; Visit Provider Internal Medicine
DX: R07.89 Other chest pain (principal)
CPT/HCPCS: 78452; 93017; 93306; A9500; A4216

== ENCOUNTER → 2023-01-17 | Outpatient (CLI) | payer MEDICARE, OTHER, SELFPAY ==
--- NOTE | 2023-01-17 09:01 | US_ITS ---
HISTORY: liver cyst. TECHNIQUE: Sutton scale and color doppler imaging was performed of the right upper quadrant. 108 images. COMPARISON: None. FINDINGS: LIVER: 16.1 cm in length with heterogeneous echotexture. 2.4 x 3.7 x 3.2 cm and 2.3 x 1.2 x 2.1 cm cysts. No intrahepatic ductal dilatation. MAIN PORTAL VEIN: Patent with flow in the appropriate direction. COMMON BILE DUCT: 4 mm in diameter. GALLBLADDER: No gallstones. 3 mm wall thickness, within normal limits. No pericholecystic fluid. Sonographic Blum sign negative. PANCREAS: Visualized proximal portion unremarkable with a 2 mm] duct, nondilated. RIGHT KIDNEY: 9.2 cm in length with a cortical thickness of 1.1 cm. No hydronephrosis. 1.7 x 2.2 x 1.9 cm cyst. US/Abdomen Limited IMPRESSION: Hepatic and right renal cysts. Heterogeneous liver from hepatic steatosis or hepatocellular disease. No sonographic evidence of cholelithiasis. Electronically Signed: Tressa Escalante MD at 13:19 EST ,
== END | disposition home or self-care (01) ==
PROVIDERS: PCP Internal Medicine; Referring Provider Internal Medicine; Visit Provider Internal Medicine
DX: K76.89 Other specified diseases of liver (principal)
CPT/HCPCS: 76705

== ENCOUNTER 2023-02-24 09:49 | Emergency (ER) | payer MEDICARE, OTHER, SELFPAY ==
[2023-02-24 09:49] VITALS: BP 171/89; PULSE 84; RESP 16; TEMP 36.7; O2SAT 99; BMI 24.0
--- NOTE | 2023-02-24 10:15 | EDS_ITS ---
HPI History of Present Illness Chief Complaint: Wound Informant: patient and family Narrative Narrative: Patient states she went outside to move a poinsettia indoors, she was on a metal ramp and it was slippery from ice, she slipped and grabbed onto nearby railing, and sustained an injury to her forearm versus the railing. Her sleeve was down at the time and when she pulled it up she noticed that there was a skin tear. Last tetanus is unknown. She denies any other injury. 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 Bilateral carotid artery disease CAD (coronary artery disease) Carotid artery disease Closed left arm fracture Dyspnea on exertion Essential hypertension GERD (gastroesophageal reflux disease) HTN (hypertension) Hyperlipidemia Other intermediate designer (current) drug therapy Palpitations Pericardial effusion Peripheral vascular disease Pure hypercholesterolemia Tachycardia Thoracic aortic aneurysm without rupture Home Medications aspirin 325 mg tablet 325 mg PO DAILY@0800 06/27/13 [History Last Taken 06/28/13] atorvastatin 40 mg tablet 40 mg PO QHS 06/27/13 [History Last Taken 06/27/13] multivitamin with folic acid 400 mcg tablet 1 tab PO DAILY 06/27/13 [History Last Taken 06/27/13] cholecalciferol (vitamin D3) 50 mcg (2,000 unit) tablet 2,000 unit PO QDAY 06/23/17 [History Last Taken Unknown] amlodipine 5 mg tablet 5 mg PO DAILY #90 tabs 04/27/19 [Rx Last Taken Unknown] ascorbic acid (vitamin C) 500 mg tablet 500 mg PO DAILY@0800 01/11/20 [History Last Taken Unknown] bumetanide 0.5 mg tablet 0.75 mg PO DAILY 12/19/21 [History Last Taken Unknown] lactobacillus combination no.9 4 billion cell capsule (Adult 50 Plus Probiotic) 4,000 mmu cells PO DAILY 12/19/21 [History Last Taken Unknown] levothyroxine 25 mcg capsule 50 mcg PO .COMPLEX 12/19/21 [History Last Taken Unknown] magnesium 1 tab PO DAILY 04/28/22 [History Last Taken Unknown] zinc 1 tab PO DAILY 04/28/22 [History Last Taken Unknown] potassium chloride 20 mEq tablet,extended release 20 meq PO DAILY #90 tabs 04/30/22 [Rx Last Taken Unknown] metoprolol succinate 50 mg tablet,extended release 24 hr 50 mg PO BID 09/05/22 [History Last Taken Unknown] Allergy/AdvReac Type Severity Reaction Status Date / Time codeine Allergy Unknown Verified 09/05/22 14:42 Family History (Reviewed 09/05/22 @ 16:33 by Katrina Christina [employer] INSPECTOR, [employer]SE[employer] INSPECTOR-C) Father CAD (coronary artery disease) Myocardial infarction Mother CVA (cerebral vascular accident) CHF (congestive heart failure) Brother CAD (coronary artery disease) Hx of CABG Sister No problems noted. Sister Hypertension CAD (coronary artery disease) Surgical History (Reviewed 09/05/22 @ 16:33 by Katrina Christina [employer] INSPECTOR, [employer]ESSELS INSPECTOR-C) History of hernia repair History of hysterectomy History of repair of rotator cuff Hx of CABG (~11/01/10) Social History Smoking Status: Never smoker alcohol intake: never substance use type: does not use caffeine: Yes Type: tea Number of servings: 1 what type of physical activity do you participate in: none seatbelt use: always do you feel safe at home: Yes ROS ROS ED Constitutional Constitutional ED: Denies chills or fever(s) Musculoskeletal Musculoskeletal: Reports extremity pain; Denies neck pain Integumentary Reports wounds; Denies Abrasions or rash Neurologic Neurologic: Denies paresthesias or weakness EXAM Physical Exam Const Vital Signs: 02/24/23 09:49 Temperature 98.0 F Temperature Source Temporal Pulse Rate 84 Respiratory Rate 16 Blood Pressure 171/89 H Blood Pressure Mean 116 Pulse Ox 99 Oxygen Delivery Method Room Air Positive well nourished and well developed General Appearance ED: well developed and NAD Neck full ROM and supple Back/Spine normal ROM and normal to inspection Extremity full ROM Extremity Narrative: To flap shaped skin tears on the dorsal lateral right mid-proximal forearm. There is some mild swelling in the soft tissues here, all compartments are soft and nondistended. There is no bony tenderness in the radius of the ulna or the elbow, and she has full range of motion of the elbow without any discomfort including pronation supination. 2+/4 radial pulse. There is no penetration into the dermis in either of the skin tears or need for repair. Neuro oriented x3, no focal motor deficits and no sensory deficits noted Sensorium / Orientation: alert Psych mental status grossly normal and thought process normal Skin Skin Narrative: Skin tears right forearm no other wounds see above Rashes: no rashes MDM MDM MDM Narrative Medical decision making narrative: Patient declines an offer to update her tetanus. I think that is okay this is a low risk tetanus wound. There is no repair indicated. I will have nurses cleansed and dressed the wound and give the patient some supplies and instructions for further care as it heals. Discharge Plan Triage Chief Complaint: Wound ED Provider: Maulik Fam Dx/Rx/DC Orders Clinical Impression: Skin tear of right forearm without complication Instructions: ED Skin Tear (Skin Avulsion) Prescriptions: No Action cholecalciferol (vitamin D3) 2,000 unit tablet 2,000 unit tablet 2,000 unit PO QDAY levothyroxine 25 mcg capsule 25 mcg capsule 50 mcg PO .COMPLEX Rx Instructions: 50 mcg orally alternates 25mcg and 50mcg every other day; Adult 50 Plus Probiotic 4 billion cell capsule 4,000 mmu cells PO DAILY Rx Instructions: administer with a meal metoprolol succinate 50 mg tablet extended release 24 hr 50 mg PO BID Rx Instructions: takes 50mg qam, 25 mg qpm atorvastatin 40 MG tablet 40 mg PO QHS aspirin 325 MG tablet 325 mg PO DAILY@0800 multivitamin with folic acid 1 TABLET tablet 1 tab PO DAILY ascorbic acid (vitamin C) 500 mg tablet 500 mg PO DAILY@0800 bumetanide 0.5 mg tablet 0.75 mg PO DAILY zinc Tablet,Chewable 1 tab PO DAILY magnesium Tablet 1 tab PO DAILY amlodipine 5 mg tablet 5 mg PO DAILY Qty: 90 3RF potassium chloride 20 mEq tablet extended release 20 meq PO DAILY Qty: 90 3RF Primary Care Provider: Meera Edge Referrals: Meera Edge DO [Primary Care Provider] - As Needed Disposition Disposition: Home, Self Care
== END 2023-02-24 11:25 | disposition home or self-care (01) ==
LOC: ED 10:55
PROVIDERS: Emergency Provider Emergency Medicine; PCP Internal Medicine; Visit Provider Emergency Medicine
DX: S51.811A Laceration without foreign body of right forearm, initial encounter (principal); W18.49XA Other slipping, tripping and stumbling without falling, initial encounter; Y93.89 Activity, other specified; I25.10 Atherosclerotic heart disease of native coronary artery without angina pectoris; I10 Essential (primary) hypertension; Z79.82 Long term (current) use of aspirin; Z79.899 Other long term (current) drug therapy
CPT/HCPCS: 99282